=== PATIENT | male | born 1945 | race Two or more races ===

== ENCOUNTER 2018-05-25 11:14 | Outpatient (CLI) | payer OTHER ==
[~2018-05-25 11:14] MED LIST: COZAAR PO; LEVOXYL137 MCG PO; NORVASC 5MG TAB PO; PLAVIX 75MG PO; POLY119PG PO; POM (MEDICAMENTO EN PISO) PO; Synthroid 125MCG TABLET PO; TENORMIN50 M1 PO; XOPENEX0.63 MG/3 IH; ZYLOPRIM100 M1 PO; ZoCOR 20MG TABLET PO
== END 2018-05-25 12:36 | disposition home or self-care (01) ==
LOC: TOM 11:14
DX: R55 Syncope and collapse (principal); R56.9 Unspecified convulsions; Z86.73 Personal history of transient ischemic attack (TIA), and cerebral infarction without residual deficits; I73.9 Peripheral vascular disease, unspecified; I11.9 Hypertensive heart disease without heart failure

== ENCOUNTER 2018-06-01 09:50 | Outpatient (CLI) | payer OTHER | END 2018-06-01 10:30 | disposition home or self-care (01) | LOC: NUCLEAR 09:50 | DX: R55 Syncope and collapse (principal); Z86.73 Personal history of transient ischemic attack (TIA), and cerebral infarction without residual deficits; R59.0 Localized enlarged lymph nodes; I65.29 Occlusion and stenosis of unspecified carotid artery ==

== ENCOUNTER 2018-10-18 08:33 | Outpatient (CLI) | payer OTHER | END 2018-10-18 08:36 | disposition home or self-care (01) | LOC: SONOGRAMA 08:33 | DX: K85.80 Other acute pancreatitis without necrosis or infection (principal) ==

== ENCOUNTER 2019-02-16 10:33 | Outpatient (CLI) | payer OTHER | END 2019-02-16 10:41 | disposition home or self-care (01) | LOC: NUCLEAR 10:33 | DX: I11.9 Hypertensive heart disease without heart failure (principal); R94.31 Abnormal electrocardiogram [ECG] [EKG]; I35.9 Nonrheumatic aortic valve disorder, unspecified; I25.10 Atherosclerotic heart disease of native coronary artery without angina pectoris ==

== ENCOUNTER 2019-05-11 08:57 | Outpatient (CLI) | payer OTHER | END 2019-05-11 08:59 | disposition home or self-care (01) | LOC: RAD 08:57 | DX: K86.1 Other chronic pancreatitis (principal); M25.562 Pain in left knee ==

== ENCOUNTER → 2019-10-04 | Outpatient (CLI) | payer OTHER | END | disposition home or self-care (01) | LOC: MAMO-SONO 09:45 → SONOGRAMA 10:12 | DX: R31.1 Benign essential microscopic hematuria (principal) ==

== ENCOUNTER 2020-03-18 09:41 | Outpatient (CLI) | payer OTHER | END 2020-03-18 09:45 | disposition home or self-care (01) | LOC: NUCLEAR 09:41 | PROVIDERS: ATTEND Internal Medicine Cardiovascular Disease | DX: I44.1 Atrioventricular block, second degree (principal) ==

== ENCOUNTER 2020-08-19 19:15 | Inpatient (IN) | payer OTHER ==
[~2020-08-19] VITALS: Ht 162.6 cm; Wt 72.6 kg
--- NOTE | 2020-08-19 19:24 | NUR ---
PTE ALERTA Y ORIENTADO X 3 ESFERAS EN COMPANIA DE FAMILIAR LLEGA EN AMBULANCIA Y REFIERE DOLOR ABDOMINAL Y NASUSEAS DESDE ESTA MANANA,REFIERE PODRIA SER PANCREATITIS,REFIERE TUVO CHANDNI EN VESICULA PIERRE SE LA RETIRARON A TRAVES DE PROCEDIMIENTO SIN SACAR LA VESICULA.SE MILTON S/V Y SE PRESENTA A DR CARTER.
--- NOTE | 2020-08-19 20:33 | NUR ---
SE ORIENTA PTE SOBRE TX MEDICO EL CUAL REFIERE ENTENDER.SE LE EXTRAEN MUESTRAS BAJO MEDIDAS ASEPTICAS,SE CANALIZA Y SE COLOCA FLUIDOS DE MANTENIMIENTO,SE NOTIFICA SONOGRAMA PENDIENTE.
--- NOTE | 2020-08-19 23:24 | NUR ---
SE RECIBE PTE MASCULINO DE 75 YRS ALERTA CONCIENTE Y TRANQUILO EN BRIAN CON BARABDAS ELEVADA. PTE CON IVF'S PATENTE Y MAYCOL DE EDEMA,. SE PTE AL MOMENTO MAYCOL DE DOLOR . SE CONSULTA PTE A EL DR, VILLANUEVA QUE VIENE A EVALUADRLO EN LA MANANA. SE MANTIENE BAJO OBSERVACION.
--- NOTE | 2020-08-20 01:57 | NUR ---
NOTIFICO GASES ARTERIALES A MR. HERRING PERSONAL DE TERAPIA RESPIRATORIA.
--- NOTE | 2020-08-20 02:34 | NUR ---
SE DESCONTINUO G ORDENADO POR .
--- NOTE | 2020-08-20 07:15 | NUR ---
SE RECIBE PTE MASCULINO ALERTA Y ORIENTADO EN [place] ESFERAS EN COMPANIA DE FAMILIAR; EN BRIAN BAJA CON BARANDAS ELEVADAS Y FRENOS COLOCADOS POR SEGURIDAD. SE OBSERVA CON BUEN PATRON RESPIRATORIO Y NO REFIERE DOLOR AL MOMENTO. VENOPUNCION PATENTE MAYCOL DE EDEMA Y ERITEMA RECIBIENOD TERAPIA DE IVFS 0.9NSS BAJANDO A 100ML/HR. PENDIENTE CONSULTA CON YA NOTIFICADA.
== END 2020-08-23 21:03 | disposition home or self-care (01) | DRG 439 ==
LOC: ER 19:15 → SEC-K 08-20 11:32 → MEDI 08-20 11:32 → SURH 08-20 16:56
PROVIDERS: ADMIT Internal Medicine; ATTEND Internal Medicine
PROC: 4A033R1 Measurement of Arterial Saturation, Peripheral, Percutaneous Approach (ICD-10-PCS; principal; 2020-08-20)
PROC: 0FJD8ZZ Inspection of Pancreatic Duct, Via Natural or Artificial Opening Endoscopic (ICD-10-PCS; 2020-08-20)
PROC: 0FJB8ZZ Inspection of Hepatobiliary Duct, Via Natural or Artificial Opening Endoscopic (ICD-10-PCS; 2020-08-20)
PROC: BF11YZZ Fluoroscopy of Biliary and Pancreatic Ducts using Other Contrast (ICD-10-PCS; 2020-08-20)
DX: K85.80 Other acute pancreatitis without necrosis or infection (principal); G40.89 Other seizures; E78.00 Pure hypercholesterolemia, unspecified; E03.9 Hypothyroidism, unspecified; I13.10 Hypertensive heart and chronic kidney disease without heart failure, with stage 1 through stage 4 chronic kidney disease, or unspecified chronic kidney disease; N18.9 Chronic kidney disease, unspecified; Z20.828 Contact with and (suspected) exposure to other viral communicable diseases; N28.1 Cyst of kidney, acquired

== ENCOUNTER 2020-11-24 02:08 | Inpatient (IN) | payer OTHER ==
[~2020-11-24] VITALS: Ht 170.2 cm; Wt 86.2 kg
[2020-11-24] MEDS ORDERED: KEPPRA750 MG (02:22)
[2020-11-24] MEDS ORDERED: TRADJENTA5 MG (02:23)
[2020-11-24] MEDS ORDERED: AMLODIPINE (02:25)
--- NOTE | 2020-11-24 02:26 | NUR ---
PTE SE RECIBE POR ABDOMINAL PAIN Y NAUSEAS REFIERE PTE.
--- NOTE | 2020-11-24 02:53 | NUR ---
PTE ALERTA Y ORIENTADO X3 EN BRIAN CON BARANDAS ELEVADAS. SE CANALIZA AREA MAYCOL DE EDEMA Y DE ENROJECIMIENTO. SE LE MILTON MUESTRAS DE LAB.JIGNESH ORDEN MEDICA BAJO MEDIDAS ASEPTICAS. SE LE ADMINISTRAN MEDICAMENTOS JIGNESH ORDEN MEDICA Y SE EDUCA SOBRE TRATAMIENTO MEDICO. PTE MANEJADO POR DANIELLE.
--- NOTE | 2020-11-24 07:15 | NUR ---
SE RECIBE PTE MASCULINO DE 75 YRS ALERTA CONCIENTE Y TRANQUILO ,EN BRIAN CON BARANDAS ELEVADA. PTE SE OBSERVA CON IVF'S PATENTE Y MAYCOL DE EDEMA. SE MANIENE CONSULTADA CON EL CUBA GAMBOA. SE OBSERVA POR CAMBIOS EN ARRIOLA CONDICION.
[2020-11-25] MEDS ORDERED: SYNTHROID175 MCG (11:23)
[2020-11-25] MEDS ORDERED: LOSARTAN POTASS25 MG (11:23)
[2020-11-25] MEDS ORDERED: AMLODIPINE BESYL5 MG (11:24)
[2020-11-25] MEDS ORDERED: SIMVASTATIN40 MG (11:25)
[2020-11-25] MEDS ORDERED: PLAVIX75 MG (11:25)
== END 2020-11-28 16:43 | disposition home or self-care (01) | DRG 439 ==
LOC: ER 02:08 → SEC-K 09:14 → SURG 11-25 03:26
PROVIDERS: ADMIT Internal Medicine; ATTEND Internal Medicine
PROC: BW40ZZZ Ultrasonography of Abdomen (ICD-10-PCS; principal; 2020-11-24)
PROC: BF37ZZZ Magnetic Resonance Imaging (MRI) of Pancreas (ICD-10-PCS; 2020-11-24)
DX: K85.90 Acute pancreatitis without necrosis or infection, unspecified (principal); G40.89 Other seizures; Z20.822 Contact with and (suspected) exposure to COVID-19; E03.8 Other specified hypothyroidism; I12.9 Hypertensive chronic kidney disease with stage 1 through stage 4 chronic kidney disease, or unspecified chronic kidney disease; N18.9 Chronic kidney disease, unspecified

== ENCOUNTER 2020-12-31 09:59 | Outpatient (CLI) | payer OTHER ==
[~2020-12-31 09:59] MED LIST changes: +AMLODIPINE; +AMLODIPINE BESYL5 MG; +KEPPRA750 MG; +LOSARTAN POTASS25 MG; +PLAVIX75 MG; +SIMVASTATIN40 MG; +SYNTHROID175 MCG; +TRADJENTA5 MG
== END 2020-12-31 10:11 | disposition home or self-care (01) ==
LOC: NUCLEAR 09:59
PROVIDERS: ATTEND Internal Medicine Cardiovascular Disease
DX: I25.10 Atherosclerotic heart disease of native coronary artery without angina pectoris (principal); I45.0 Right fascicular block; I44.1 Atrioventricular block, second degree

== ENCOUNTER 2022-03-03 18:30 | Inpatient (IN) | payer OTHER ==
[~2022-03-03] VITALS: Ht 172.7 cm; Wt 84.8 kg
== END 2022-03-10 19:22 | disposition home or self-care (01) | DRG 638 ==
LOC: ER 18:30 → ICU-2 03-04 00:15 → MEDJ 03-06 13:10
PROVIDERS: ADMIT Internal Medicine; ATTEND Internal Medicine
PROC: 02HV33Z Insertion of Infusion Device into Superior Vena Cava, Percutaneous Approach (ICD-10-PCS; principal; 2022-03-06)
PROC: 4A12X4Z Monitoring of Cardiac Electrical Activity, External Approach (ICD-10-PCS; 2022-03-06)
DX: E11.00 Type 2 diabetes mellitus with hyperosmolarity without nonketotic hyperglycemic-hyperosmolar coma (NKHHC) (principal); N17.8 Other acute kidney failure; G40.89 Other seizures; F10.139 Alcohol abuse with withdrawal, unspecified; E11.10 Type 2 diabetes mellitus with ketoacidosis without coma; E11.49 Type 2 diabetes mellitus with other diabetic neurological complication; E11.22 Type 2 diabetes mellitus with diabetic chronic kidney disease; I13.10 Hypertensive heart and chronic kidney disease without heart failure, with stage 1 through stage 4 chronic kidney disease, or unspecified chronic kidney disease; N18.9 Chronic kidney disease, unspecified; E86.0 Dehydration; E03.8 Other specified hypothyroidism; E78.5 Hyperlipidemia, unspecified; E86.9 Volume depletion, unspecified; R41.82 Altered mental status, unspecified; I25.10 Atherosclerotic heart disease of native coronary artery without angina pectoris; Z79.84 Long term (current) use of oral hypoglycemic drugs; Z86.73 Personal history of transient ischemic attack (TIA), and cerebral infarction without residual deficits; R53.81 Other malaise; E87.8 Other disorders of electrolyte and fluid balance, not elsewhere classified

== ENCOUNTER 2023-01-17 06:42 | Emergency (ER) | payer OTHER ==
[~2023-01-17] VITALS: Ht 167.6 cm; Wt 77.1 kg
== END 2023-01-17 10:56 | disposition home or self-care (01) ==
LOC: ER 06:42
DX: E86.0 Dehydration (principal); E11.9 Type 2 diabetes mellitus without complications; I10 Essential (primary) hypertension; I11.9 Hypertensive heart disease without heart failure; R53.1 Weakness; Z79.84 Long term (current) use of oral hypoglycemic drugs

== ENCOUNTER → 2023-08-12 | Outpatient (CLI) | payer OTHER | END | disposition home or self-care (01) | LOC: TOM 08:12 | PROVIDERS: ATTEND Internal Medicine Gastroenterology | DX: K63.5 Polyp of colon (principal); K86.1 Other chronic pancreatitis; C34.90 Malignant neoplasm of unspecified part of unspecified bronchus or lung ==

== ENCOUNTER 2024-04-19 11:35 | Emergency (ER) | payer OTHER ==
[~2024-04-19] VITALS: Ht 170.2 cm; Wt 76.2 kg
[2024-04-19] MEDS ORDERED: SYNTHROID150 MCG PO (11:53)
[2024-04-19] MEDS ORDERED: NORVASC2.5 M1 (11:53)
[2024-04-19] MEDS ORDERED: COZAAR25 MG (11:53)
[2024-04-19] MEDS ORDERED: KEPPRA XR750 MG (11:53)
[2024-04-19] MEDS ORDERED: PREVACID15 M1 PO (11:53)
[2024-04-19] MEDS ORDERED: ZYLOPRIM100 M1 PO (11:53)
[2024-04-19] MEDS ORDERED: KAPSPARGO SPRIN25 MG PO (11:54)
[2024-04-19] MEDS ORDERED: NASAL MIST126 ML (11:54)
[2024-04-19] MEDS ORDERED: ELIQUIS2.5 MG PO (11:54)
[2024-04-19] MEDS ORDERED: MAGNESIUM200 MG PO (11:54)
[2024-04-19] MEDS ORDERED: LASIX20 MG PO (11:54)
[2024-04-19] MEDS ORDERED: TAMS0.4C PO (11:54)
[2024-04-19] MEDS ORDERED: CLORAZEPATE D3.75 MG PO (11:54)
[2024-04-19] MEDS ORDERED: 0.9 % SODIUM CHLORIDE 1,000 ML IV SCH (12:30)
[2024-04-19] MEDS ORDERED: BARIUM SULFATE 450 ML ORAL.SUSP PO ONE (13:19)
[2024-04-19 13:26] LABS: HEMATOCRIT 35.7 % (39.0-48.0); MEAN CELL VOLUME 91.3 fL (80.0-100.00); MEAN CORPUSCULAR HEMOGLOBIN 30.7 pg (27.00-32.0); MEAN CORPUSCULAR HGB CONC 33.7 g/dl (32.0-36.0); PLATELET COUNT 269 K/uL (150-450); RED BLOOD COUNT 3.91 M/uL (4.00-6.00); RED CELL DISTRIBUTION WIDTH 15.1 % (11.5-14.5)
[2024-04-19 13:53] LABS: PH,URINE 5.5 (5.0-8.0); URINE APPEARANCE Clear; URINE BILIRRUBIN Negative (NEGATIVE); URINE BLOOD Negative; URINE COLOR Yellow; URINE GLUCOSE Negative (NEGATIVE); URINE LEUKOCYTE Small; URINE NITRATE Negative; URINE UROBILINOGEN 0.2 E.U./dl
[2024-04-19 13:54] LABS: URINE BACTERIA 142.2 uL (0.0-1933); URINE EPITHELIAL CELLS 14.2 uL (0.0-38.8); URINE RBC 5.3 uL (0.0-20.8); URINE WBC 147.4 uL (0.0-23.2)
[2024-04-19 14:01] LABS: URINE PROTEIN 100 (NEGATIVE)
[2024-04-19 14:09] LABS: CREATININE SERUM 1.78 mg/dL (0.70-1.30); GFR 37.15
[2024-04-19 14:24] LABS: POTASSIUM 6.53 mEq/L (3.5-5.1)
[2024-04-19] MEDS ORDERED: FUROsemide 40 MG/4 ML VIAL ONE (16:44)
[2024-04-19] MEDS ORDERED: INSULIN REGULAR, HUMAN 1,000 UNIT/10 ML UNITS IV ONE (16:45)
[2024-04-19] MEDS ORDERED: SODIUM POLYSTYRENE SULFONATE 30GM/8 TSP PO ONE (16:45)
[2024-04-19] MEDS ORDERED: DEXTROSE 50 % IN WATER 0.5 G/ML VIAL IV ONE (16:45)
[2024-04-19] MEDS ORDERED: DEXTROSE 50 % IN WATER 0.5 G/ML DISP.SYRIN IV ONE (16:45)
[2024-04-19] MEDS ORDERED: FUROsemide 40 MG/4 ML VIAL IV ONE (16:45)
[2024-04-19 20:43] LABS: CALCIUM 9.1 mg/dL (8.5-10.1); CREATININE SERUM 1.65 mg/dL (0.70-1.30); GFR 40.55; POTASSIUM 4.89 mEq/L (3.5-5.1)
== END 2024-04-19 22:27 | disposition home or self-care (01) ==
LOC: ER 11:35
PROVIDERS: Emergency Medicine
DX: K57.90 Diverticulosis of intestine, part unspecified, without perforation or abscess without bleeding (principal); R10.32 Left lower quadrant pain; R10.9 Unspecified abdominal pain; I10 Essential (primary) hypertension; E03.8 Other specified hypothyroidism
CPT/HCPCS: 36415; 74177; 93005; 96365; 96366; 99284; J7030; Q9965